=== PATIENT | male | born 1965 | race Caucasian/White ===

== ENCOUNTER 2016-08-19 12:52 | Emergency (ER) | payer MEDICAID, OTHER ==
[2016-08-19 13:04] VITALS: PULSE 90; RESP 18; TEMP 97.9; O2SAT 99
--- NOTE | 2016-08-19 13:36 | C.PDOC ---
History Of Present Illness 51 yr old male presents to the ER stating yesterday he slipped on icy stairs while at work, injuring his right shoulder and elbow. Patient states the pain continues today which prompted the ED visit. Patient denies back pain, chest pain, SOB, weakness or numbness. Time Seen by Provider: 08/19/16 13:26 Chief Complaint (Nursing): Upper Extremity Problem/Injury History Per: Patient History/Exam Limitations: no limitations Onset/Duration Of Symptoms: Days (1) Current Symptoms Are (Timing): Still Present Past Medical History Reviewed: Historical Data, Nursing Documentation, Vital Signs Vital Signs: Last Vital Signs Temp 97.9 F 08/19/16 13:04 Pulse 90 08/19/16 15:15 Resp 18 08/19/16 15:15 BP 137/86 08/19/16 15:15 Pulse Ox 99 08/19/16 15:17 - Medical History PMH: Hypothyroidism Family History: States: No Known Family Hx - Social History Hx Alcohol Use: No Hx Substance Use: No - Immunization History Hx Tetanus Toxoid Vaccination: No Hx Influenza Vaccination: No Hx Pneumococcal Vaccination: No Review Of Systems Except As Marked, All Systems Reviewed And Found Negative. Cardiovascular: Negative for: Chest Pain Musculoskeletal: Positive for: Shoulder Pain (Right Shoulder), Other (Right elbow pain ). Negative for: Back Pain Neurological: Negative for: Weakness, Numbness Physical Exam - Physical Exam Appears: Non-toxic, No Acute Distress Skin: Warm, Dry Head: Atraumatic, Normacephalic Eye(s): bilateral: Normal Inspection Oral Mucosa: Moist Neck: Normal, Normal ROM, Supple Chest: Symmetrical, No Tenderness Cardiovascular: Rhythm Regular, No Murmur Respiratory: Normal Breath Sounds, No Rales, No Rhonchi Gastrointestinal/Abdominal: Soft, No Tenderness Extremity: Tenderness (Right Shoulder - Tenderness to the posterior. Pain with abduction pass 90 degrees. Right Elbow - Tenderness to the posterior elbow. ), Capillary Refill (< 2 sec), No Swelling Pulses: Left Radial: Normal, Right Radial: Normal Neurological/Psych: Oriented x3, Normal Speech, Normal Motor Gait: Steady ED Course And Treatment O2 Sat by Pulse Oximetry: 99 - Other Rad X-Ray - Right Shoulder X-Ray: Viewed By Me, Read By Radiologist Interpretation: PROCEDURE: Radiographs of the Right Shoulder. HISTORY: shoulder injury r/o fx. COMPARISON: None available. FINDINGS: BONES: No acute displaced fracture. The distal clavicle and underlying ribs appear intact. JOINTS: No acute dislocation. SOFT TISSUES: Soft tissues appear unremarkable. No evidence of radiopaque foreign body. IMPRESSION: No acute displaced fracture or dislocation evident. If symptoms persist or if there is continued clinical concern, x-ray follow-up in 7-10 days should be considered. X-Ray - Right Elbow X-Ray: Viewed By Me, Read By Radiologist Interpretation: PROCEDURE: Radiographs of the right elbow. HISTORY: elbow injury r/o fx. COMPARISON: None available. FINDINGS: BONES: No acute displaced fracture. JOINTS: No dislocation. SOFT TISSUES: Mild soft tissue swelling. No evidence of radiopaque foreign body. JOINT EFFUSION: No significant joint effusion. OTHER FINDINGS: None. IMPRESSION: Mild soft tissue swelling. No acute displaced fracture, dislocation, or significant joint effusion identified. If high clinical index of suspicion for occult fracture consider cross-sectional imaging. Otherwise if symptoms persist, or if there is continued clinical concern, x-ray follow-up in 7-10 days should be considered. Orthopedic Procedure: Splint Type: Long, Posterior Other:: right arm Consent obtained: Verbal Performed by: Mid-level Provider (Jami) Diagnosis: Other (pain) Medical Decision Making Medical Decision Making: PLAN: * X-Ray - Right Elbow, Right Shoulder * Naproxen PO Splint was applied because of pain, but no fractures seen. Patient was instructed to follow up with Ortho. Disposition - Disposition Referrals: [facility] at [facility] [Outside] Disposition: HOME/ ROUTINE Disposition Time: 15:07 Condition: GOOD Additional Instructions: Follow up with the medical doctor within 1-2 days. Return if worsened. Prescriptions: Naproxen [Naprosyn] 500 mg PO BID #20 tab Instructions: Elbow Sprain (ED) Forms: Work Excuse - Clinical Impression Clinical Impression: Elbow sprain, Shoulder contusion - PA / CLUB MANAGER / Resident Statement MD/DO has reviewed & agrees with the documentation as recorded. - Scribe Statement The provider has reviewed the documentation as recorded by the Scribe Sabrina Joseph All medical record entries made by the Scribe were at my direction and personally dictated by me. I have reviewed the chart and agree that the record accurately reflects my personal performance of the history, physical exam, medical decision making, and the department course for this patient. I have also personally directed, reviewed, and agree with the discharge instructions and disposition.
[2016-08-19] MEDS ORDERED: Naproxen 550 mg Tab PO STA (13:37)
[2016-08-19] MEDS ORDERED: Naproxen 550 mg Tab PO ONE (14:02)
--- NOTE | 2016-08-19 14:57 | RAD ---
PROCEDURE: Radiographs of the Right Shoulder HISTORY: shoulder injury r/o fx COMPARISON: None available. FINDINGS: BONES: No acute displaced fracture. The distal clavicle and underlying ribs appear intact. JOINTS: No acute dislocation. SOFT TISSUES: Soft tissues appear unremarkable. No evidence of radiopaque foreign body. IMPRESSION: No acute displaced fracture or dislocation evident. If symptoms persist or if there is continued clinical concern, x-ray follow-up in 7-10 days should be considered.
--- NOTE | 2016-08-19 15:07 | RAD ---
PROCEDURE: Radiographs of the right elbow. HISTORY: elbow injury r/o fx COMPARISON: None available FINDINGS: BONES: No acute displaced fracture. JOINTS: No dislocation. SOFT TISSUES: Mild soft tissue swelling. No evidence of radiopaque foreign body. JOINT EFFUSION: No significant joint effusion. OTHER FINDINGS: None IMPRESSION: Mild soft tissue swelling. No acute displaced fracture, dislocation, or significant joint effusion identified. If high clinical index of suspicion for occult fracture consider cross-sectional imaging. Otherwise if symptoms persist, or if there is continued clinical concern, x-ray follow-up in 7-10 days should be considered.
[2016-08-19 15:16] VITALS: BP 137/86
== END 2016-08-19 15:16 | disposition home or self-care (01) ==
LOC: C.ER 12:52
DX: S53.401A Unspecified sprain of right elbow, initial encounter (principal); S40.011A Contusion of right shoulder, initial encounter; W10.9XXA Fall (on) (from) unspecified stairs and steps, initial encounter; Y92.89 Other specified places as the place of occurrence of the external cause; Y99.0 Civilian activity done for income or pay

== ENCOUNTER 2016-08-25 16:58 | Emergency (ER) | payer OTHER ==
[2016-08-25 17:10] VITALS: TEMP 97.9; O2SAT 98
--- NOTE | 2016-08-25 17:38 | C.PDOC ---
History Of Present Illness 51 yo male return to ED for reevaluation of Right elbow and Right shoulder pain developed since 08/19/16. Pt admits, was seen here on 08/19/16 when Right shoulder /elbow xray performed with normal results and splint applied to Right arm. Pt sts, developed some numbing and tingling sensation to Right hand fingers more to 5th finger. Otherwise, pt denies worsening of pain, weakness, pallor or any other new active complaints to Right arm. AMbulate to ED for evaluation, not in any apparent distress. Long Right arm splint noted. NO ortho F/U as of today. Time Seen by Provider: 08/25/16 17:35 Chief Complaint (Nursing): Upper Extremity Problem/Injury History Per: Patient Past Medical History Reviewed: Historical Data, Nursing Documentation, Vital Signs Vital Signs: Last Vital Signs Temp 97.9 F 08/25/16 17:07 Pulse 70 08/25/16 18:44 Resp 16 08/25/16 18:44 BP 146/79 08/25/16 18:44 Pulse Ox 98 08/25/16 18:44 - Medical History PMH: Hypothyroidism Denies: Chronic Kidney Disease Family History: States: No Known Family Hx - Social History Hx Alcohol Use: No Hx Substance Use: No - Immunization History Hx Tetanus Toxoid Vaccination: No Hx Influenza Vaccination: No Hx Pneumococcal Vaccination: No Review Of Systems Except As Marked, All Systems Reviewed And Found Negative. Constitutional: Negative for: Fever, Chills Musculoskeletal: Positive for: Arm Pain Neurological: Negative for: Weakness, Numbness Physical Exam - Physical Exam Appears: Well, Non-toxic, No Acute Distress Skin: Normal Color, Warm, No Rash, No Ecchymosis Extremity: Other (Right long arm fiberglass noted. Cap refill <2sec to Right hand. No neurovascular deficits distally.) Neurological/Psych: Oriented x3, Normal Speech, Normal Motor, Normal Sensation, Normal Reflexes ED Course And Treatment O2 Sat by Pulse Oximetry: 98 Pulse Ox Interpretation: Normal - Other Rad X-Ray - Right Elbow X-Ray: Read By Radiologist Interpretation: Accession No. : [id number]. Patient Name / ID : MAYITO ESTEBAN / [id number]. Exam Date : 08/19/2016 13:34:49 ( Approved ). Study Comment : Sex / Age : M / 51Y. Creator : Lydia Edmondson MD. Dictator : Lydia Edmondson MD. Cigarette Book Maker : Hair Or Beauty Salon Manager : Lydia Edmondson MD. Approver2 : Report Date : 08/19/2016 15:06:19. My Comment : . PROCEDURE: Radiographs of the right elbow. HISTORY: elbow injury r/o fx. COMPARISON: None available. FINDINGS: BONES: No acute displaced fracture. JOINTS: No dislocation. SOFT TISSUES: Mild soft tissue swelling. No evidence of radiopaque foreign body. JOINT EFFUSION: No significant joint effusion. OTHER FINDINGS: None. IMPRESSION: Mild soft tissue swelling. No acute displaced fracture, dislocation, or significant joint effusion identified. If high clinical index of suspicion for occult fracture consider cross-sectional imaging. Otherwise if symptoms persist, or if there is continued clinical concern, x-ray follow-up in 7-10 days should be considered. X-Ray - Right Shoulder X-Ray: Read By Radiologist Interpretation: Accession No. : [id number]. Patient Name / ID : MAYITO ESTEBAN / [id number]. Exam Date : 08/19/2016 13:34:30 ( Approved ). Study Comment : Sex / Age : M / 51Y. Creator : Lydia Edmondson MD. Dictator : Lydia Edmondson MD. Cigarette Book Maker : Hair Or Beauty Salon Manager : Lydia Edmondson MD. Approver2 : Report Date : 08/19/2016 14:55:47. My Comment : . PROCEDURE: Radiographs of the Right Shoulder. HISTORY: shoulder injury r/o fx. COMPARISON: None available. FINDINGS: BONES: No acute displaced fracture. The distal clavicle and underlying ribs appear intact. JOINTS: No acute dislocation. SOFT TISSUES: Soft tissues appear unremarkable. No evidence of radiopaque foreign body. IMPRESSION: No acute displaced fracture or dislocation evident. If symptoms persist or if there is continued clinical concern, x-ray follow-up in 7-10 days should be considered. Progress Note: Long Right arm splint removed. pressure points noted over Right hand ulnar aspect. On re-eavluation of Right UE: mild tenderness over medial aspect. FAROM, no neurovascular deficits. No skin changes. xray review and appears normal without acute fx. Jose Rafael wrap to re-applied to Right elbow, SLing to Right arm. Pt advised. ref. to f/u with ortho in 2-3 days for re-eavl. return if any new hcanges. Disposition Counseled Patient/Family Regarding: Diagnosis, Need For Followup - Disposition Referrals: [facility] [Outside] [facility] [place] [Outside] Disposition: HOME/ ROUTINE Disposition Time: 18:34 Condition: STABLE Additional Instructions: Jose Rafael wrap to Right elbow Sling take medication as prescribed for pain as need Follow up with Orthopedist in 2-3 days for re-evaluation. Return to ED if any worsening or new changes. Prescriptions: Ibuprofen [Motrin] 600 mg PO Q6 #20 tab traMADol [Ultram] 50 mg PO BID #10 tab Instructions: Elbow Sprain (ED) - Clinical Impression Clinical Impression: Arthralgia of elbow, right, Shoulder arthralgia
[2016-08-25 18:44] VITALS: BP 146/79; PULSE 70; RESP 16
== END 2016-08-25 18:44 | disposition home or self-care (01) ==
LOC: C.ER 16:58
DX: M25.521 Pain in right elbow (principal); M25.511 Pain in right shoulder

== ENCOUNTER 2016-12-14 19:36 | Emergency (ER) | payer OTHER ==
[2016-12-14] MEDS ORDERED: Sodium Chloride 0.9% 1,000 ML ONE (20:05)
--- NOTE | 2016-12-14 20:07 | C.PDOC ---
History Of Present Illness 51M c/o left testicular pain and swelling worsening since last night. he does heavy lifting at work but denies acute trauma. no urinary sx. takes meloxicam/ motrin at home no relief. Time Seen by Provider: 12/14/16 20:06 Chief Complaint (Nursing): Male Genitourinary Past Medical History Vital Signs: Last Vital Signs Temp 98.8 F 12/14/16 23:56 Pulse 84 12/14/16 23:56 Resp 18 12/14/16 23:56 BP 112/62 12/14/16 23:56 Pulse Ox 99 12/14/16 23:56 - Medical History PMH: Hypothyroidism Family History: States: Other Other Family History: nc - Social History Hx Alcohol Use: No Hx Substance Use: No - Immunization History Hx Tetanus Toxoid Vaccination: No Hx Influenza Vaccination: No Hx Pneumococcal Vaccination: No Review Of Systems Except As Marked, All Systems Reviewed And Found Negative. Constitutional: Negative for: Fever, Chills Cardiovascular: Negative for: Chest Pain Respiratory: Negative for: Cough, Shortness of Breath Gastrointestinal: Positive for: Abdominal Pain (little llq). Negative for: Nausea, Vomiting Genitourinary: Negative for: Dysuria, Frequency, Hematuria, Penile Discharge Neurological: Negative for: Weakness, Numbness Physical Exam - Physical Exam Appears: Well, Non-toxic, No Acute Distress Skin: Warm, Dry Head: Atraumatic Eye(s): bilateral: PERRL Nose: No Epistaxis Oral Mucosa: Moist Lips: No Swelling Cardiovascular: Rhythm Regular Respiratory: No Decreased Breath Sounds, No Accessory Muscle Use Gastrointestinal/Abdominal: Soft, No Tenderness, No Distention, No Guarding, No Rebound Male Genital: Testicular Tenderness (left), Testicular Swelling (left) Neurological/Psych: Oriented x3, Other (no focal deficits) ED Course And Treatment - Laboratory Results Result Diagrams: 12/14/16 20:29 12/14/16 20:29 O2 Sat by Pulse Oximetry: 98 - CT Scan/US US Scrotum Other Rad Studies (CT/US): Read By Radiologist, Radiology Report Reviewed CT/US Interpretation: EXAM: US Scrotum. CLINICAL HISTORY: 51 years old, male; Pain; Scrotum pain; Additional info: Pain and swelling. TECHNIQUE: Real-time ultrasound of the scrotum with color Doppler and image documentation. COMPARISON: No relevant prior studies available. FINDINGS: Right testicle: Very small cysts in the right testicle. No torsion. Left testicle: Very small cysts in the left testicle. No torsion. Epididymides: The right epididymis is enlarged, heterogeneous and hypervascular consistent with. epididymitis. Scrotum: Small bilateral hydroceles. Scrotal wall thickening on the left. IMPRESSION: 1. The right epididymis is enlarged, heterogeneous and hypervascular consistent with epididymitis. 2. Small bilateral hydroceles. Medical Decision Making Medical Decision Makin saw pt upon being roomed and immediately ordered US I disc the US results w the pt and family. he is feeling better and is comfortable w plan for po abx at home, urology follow up, and return if worse. Disposition - Disposition Referrals: Cisco Huertas MD [Staff Provider] - Disposition: HOME/ ROUTINE Disposition Time: 23:32 Condition: IMPROVED Prescriptions: Acetaminophen with Codeine [Tylenol with Codeine #3 Tablet] 1 each PO Q4H PRN # 10 tablet PRN Reason: Pain, Moderate (4-7) Levofloxacin [Levaquin] 500 mg PO DAILY #10 tablet Naproxen [Naprosyn] 500 mg PO Q12H PRN #10 tablet PRN Reason: Pain, Moderate (4-7) Instructions: Epididymitis (ED) Forms: Gen Discharge Inst Estonian, Work Excuse Print Language: ROMANIAN - Clinical Impression Clinical Impression: Epididymitis
[2016-12-14] MEDS ORDERED: Sodium Chloride 0.9% 1,000 ML IV ONE (20:11)
[2016-12-14] MEDS ORDERED: Morphine 4 MG/ML VIAL ONE ×2 (20:30→23:02)
[2016-12-14 20:35] LABS: BASO % 0.3 % (0.0-2.0); EOS # 0.1 K/uL (0.0-0.7); EOS % 0.5 % (0.0-4.0); HEMOGLOBIN 15.5 g/dL (12.0-18.0); LYMPH # 0.9 K/uL (1.0-4.3); LYMPH % 6.7 % (20.0-40.0); MEAN CELL VOLUME 90.7 fL (80.0-94.0); MEAN CORPUSCULAR HEMOGLOBIN 30.5 pg (27.0-31.0); MEAN CORPUSCULAR HGB CONC 33.6 g/dL (33.0-37.0); MEAN PLATELET VOLUME 7.8 fL (7.2-11.7); MONO % 7.6 % (0.0-10.0); NEUT # 11.4 K/uL (1.8-7.0); NEUT % 84.9 % (50.0-75.0); NRBC % 0.1 % (0.0-2.0); PLATELET COUNT 262 K/uL (130-400); RBC 5.07 Mil/uL (4.40-5.90); RED CELL DISTRIBUTION WIDTH 13.1 % (11.5-14.5); WHITE BLOOD COUNT 13.5 K/uL (4.8-10.8)
[2016-12-14 21:02] LABS: URINE BACTERIA FEW (<OCC); URINE BILIRUBIN NEGATIVE (NEGATIVE); URINE BLOOD NEGATIVE (NEGATIVE); URINE CLARITY Hazy (Clear); URINE COLOR Yellow (YELLOW); URINE GLUCOSE (UA) NORMAL (Normal); URINE LEUKOCYTE ESTERASE 2+ Leu/uL (Negative); URINE NITRATE NEGATIVE (NEGATIVE); URINE PROTEIN NEGATIVE (NEGATIVE); URINE UROBILINOGEN NORMAL mg/dL (0.2-1.0)
[2016-12-14 21:08] LABS: ALBUMIN 4.5 g/dL (3.5-5.0)
[2016-12-14 21:10] LABS: GFR AFRICAN-AMERICAN > 60; GFR NON-AFRICAN AMERICAN > 60
[2016-12-14 21:11] LABS: ALB/GLOB RATIO 1.2 (1.0-2.1); ALT/SGPT 37 U/L (21-72); AST/SGOT 24 U/L (17-59); BLOOD UREA NITROGEN 12 mg/dL (9-20); CALCIUM 9.3 mg/dl (8.6-10.4)
[2016-12-14 21:17] LABS: BANDS 4 % (0-2); LARGE PLATELETS PRESENT; LYMPHOCYTE 4 % (20-40); MICROCYTOSIS SLIGHT; MONOCYTE 10 % (0-10); NEUTROPHIL 82 % (50-75); PLATELET ESTIMATE NORMAL (NORMAL); TOTAL CELLS COUNTED 100
[2016-12-14] MEDS ORDERED: cefTRIAXone IV 1 gm in Dextros 50 ML IVPB ONE (21:37)
[2016-12-14 21:42] VITALS: PULSE 84; RESP 18
[2016-12-14 23:56] VITALS: BP 112/62; TEMP 98.8
--- NOTE | 2016-12-15 10:11 | US ---
HISTORY: pain and swelling TECHNIQUE: Realtime sonography through the scrotum with color and doppler flow. COMPARISON: None Available. FINDINGS: RIGHT TESTICLE: Measures 4.8 x 2.1 x 2.4 cm. Normal echotexture and flow. No evidence of solid mass. There is a 3 mm simple cyst in the upper body and 2 simple cysts in the lower pole measuring 3 mm and 4 mm. RIGHT EPIDIDYMIS: Epididymal head measures 0.9 x 1.3 x 1.4 cm. Grossly unremarkable appearance with normal flow. LEFT TESTICLE: Measures 3.7 x 2.4 x 2.7 cm. Normal echotexture and flow. There is a 4 mm simple cyst in the upper body. LEFT EPIDIDYMIS: Epididymal head enlarged and measures 2.2 x 1.2 x 2.4 cm. There is heterogeneous echotexture with increased flow. HYDROCELE: There are bilateral small hydroceles. VARICOCELE: There is a right varicocele. OTHER FINDINGS: There is mild left scrotal wall thickening. IMPRESSION: 1. Left epididymo -orchitis. 2. No testicular mass or torsion. 3. Bilateral small hydroceles. Right varicocele. A preliminary report was provided by [employer].
[2016-12-16 18:19] VITALS: O2SAT 98
== END 2016-12-14 23:58 | disposition home or self-care (01) ==
LOC: C.ER 19:36
DX: N45.3 Epididymo-orchitis (principal)
CPT/HCPCS: 76870; 80053; 81001; 85025; 87086; 87491; 87591; 96365; 96375; 99285; J0696; J1885; J2270; J7040

== ENCOUNTER 2017-02-11 11:04 | Day surgery (SDC) | payer OTHER ==
[2017-02-03 09:06] VITALS: BMI 28.1
[2017-02-11] MEDS: ceFAZolin IV 2 gm in Dextrose 1 GM/50 ML BAG IVPB ONE ×2 (10:29→13:30)
[~2017-02-11 11:04] MED LIST: Lactated Ringer's 1,000 ML IV ONE
[2017-02-11] MEDS ORDERED: Midazolam 2 MG/2 ML VIAL ONE (12:29)
[2017-02-11] MEDS ORDERED: Propofol 10 mg/ml Inj (20 ML) ONE (12:29)
[2017-02-11] MEDS ORDERED: Lidocaine Hydrochloride 5 ML INJ ONE (12:33)
[2017-02-11] MEDS ORDERED: Rocuronium 10 mg/ml (10 ml) ONE (12:33)
[2017-02-11] MEDS ORDERED: Succinylcholine Chloride 20 mg/ml Syr (5 ml) IV ONE (12:33)
[2017-02-11] MEDS ORDERED: Lidocaine 2% w Epi 1:100,000 Inj IJ ONE (13:43)
[2017-02-11] MEDS ORDERED: Lactated Ringer's 1,000 ML IV ONE (14:25)
[2017-02-11] MEDS ORDERED: Morphine 4 MG/ML VIAL ONE (15:24)
[2017-02-11] MEDS ORDERED: Neostigmine Methylsulfate 3mg/3ml Syringe IV ONE (16:11)
[2017-02-11] MEDS ORDERED: HYDROmorphone 0.5 mg/0.5 ml ISec IVP PRN (16:21)
[2017-02-11] MEDS ORDERED: Bupivacaine HCl 0.25% PF (10 ml) Inj ONE (16:29)
[2017-02-11] MEDS ORDERED: HYDROmorphone 1 mg/ml ISec ONE (16:30)
--- NOTE | 2017-02-11 16:59 | PCM.ANESB1 ---
Interscalene Block - Brachial Plexus Date of Procedure: 02/11/17 Anesthesiologist: shabbir Procedure Performed: Interscalene Block of Brachial Plexus Right - Procedure Interscalene Block of Brachial Plexus: This procedure was explained to the patient that it is for post-operative pain management. Consent was obtained after a thorough discussion with the patient regarding the benefits and possible complications of local anesthetic block of the Brachial Plexus at the Interscalene area. The patient was brought to the Operating Room and standard monitors were applied. Time out was held with the circulating nurse to confirm the correct surgery and appropriate block. After applying Oxygen by nasal cannula and administering IV Sedation, the patient's head was gently rotated away from the _right operative shoulder and the anterior scalene groove was carefully palpated. The ultrasound transducer was then applied to the skin in the transverse plane and the brachial plexus was visualized lateral to the carotid artery and in between the anterior and middle scalene muscles. After identification,the anterior lateral portion of the neck was prepped with Betadine solution three times and Lidocaine 1% was injected subcutaneously for topical analgesia. At this point, a # 22 gauge Stimuplex 2 inches insulated needle was inserted into the interscalene groove and directed in a caudal and midline direction. The needle was inserted lateral to the ultrasound transducer in-plane towards the brachial plexus in a [id number] direction. Needle advancement was performed carefully under direct ultrasound visualization. . After repeated negative aspiration,__5___cc of_.25____, bupivicaine were injected and this was followed with ___25__cc of .25 % ____bupivaine ____. Under ultrasound guidance the local anesthetics were observed surrounding the roots of the brachial plexus. The needle was removed intact and sterile dressing was applied. The patient had stable vital signs, was conscious and in no apparent distress. The patient tolerated the interscalene block of the bracheal plexus well with stable vital signs and was prepared for subsequent surgery.
[2017-02-11 18:10] VITALS: BP 139/88; PULSE 69; RESP 18; TEMP 97.8; O2SAT 100
--- NOTE | 2017-02-11 18:31 | PCM.SURG1 ---
Surgeon's Initial Post Op Note - Surgeon's Notes Surgeon: Ev Wray MD Medical Economics Consultant: Lynne Scott MD Type of Anesthesia: General Endo, Block Regional Pre-Operative Diagnosis: Right shoulder #1 Rotator Cuff Tear. #2 SA bursitis & impingement. #3 degenerative labral tear. #4 Biceps LH tendon partial tear & instability Operative Findings: Right shoulder #1 Rotator Cuff Tear. #2 SA bursitis & impingement. #3 degenerative labral tear. #4 Biceps LH tendon partial tear & instability Post-Operative Diagnosis: Right shoulder #1 Rotator Cuff Tear. #2 SA bursitis & impingement. #3 degenerative labral tear. #4 Biceps LH tendon partial tear & instability Operation Performed: Right shoulder. #1 Arthroscopic Rotator Cuff Repair. #2 Arthroscopic extensive debridement & synovectomy. #3 Arthroscopic subacromial decompression w/ acromioplasty. #4 Open Biceps LH tenodesis Specimen/Specimens Removed: specimen= none. complications= none. Implants= [employer] : biocomposite swivel lock anchors (2x 4.75mm & 2x 5.5mm (medial row)) and pectoralis/tenodesis button Estimated Blood Loss: EBL {In ML}: 3 Blood Products Given: N/A Drains Used: No Drains Post-Op Condition: Good Date of Surgery/Procedure: 02/11/17 Time of Surgery/Procedure: 18:35
--- NOTE | 2017-02-12 12:21 | OP ---
PROCEDURE DATE: 02/11/2017 PREOPERATIVE DIAGNOSES: 1. Right shoulder rotator cuff tear. 2. Subacromial bursitis. 3. Subacromial impingement. 4. Degenerative labral tear. 5. Biceps tendon long head partial tear and instability/tendinopathy. POSTOPERATIVE DIAGNOSES: 1. Right shoulder rotator cuff tear. 2. Subacromial bursitis. 3. Subacromial impingement. 4. Degenerative labral tear. 5. Biceps tendon long head partial tear and instability/tendinopathy. 6. Synovitis. 7. Grade 3 chondral injury glenoid (3mm lesion at inferior aspect). PROCEDURES: 1. Right shoulder arthroscopic rotator cuff repair. 2. Arthroscopic extensive debridement and synovectomy (chondroplasty glenoid/ biceps tenotomy/synovectomy/labral debridement). 3. Arthroscopic subacromial decompression with acromioplasty. 4. Open biceps long head subpectoral tenodesis. SURGEON: Ev Wray MD BRAKE REPAIR MECHANIC: Lynne Scott MD JUSTIFICATION FOR BRAKE REPAIR MECHANIC: Dr. Lynne Scott is a board certified orthopedic surgeon. He was speciality trained sport medicine and his presence was an absolute necessity as a skilled surgical assistance supervise, skill surgical assistance with positioning the patient, positioning of extremity, management of the surgical harper, passage of suture, and placement of suture anchors for double row rotator cuff repair, management of orthoscopic equipment including subacromial decompression, extensive debridement, placement of suture anchors, retraction of neurovascular structures and preparation of proximal long head biceps tendon and preparation of docking site for biceps tenodesis and completion of biceps tenodesis, wound closure. Dr. Lynne Scott was present for the entire case and was an absolute necessity for successful completion of the procedure. TYPE OF ANESTHESIA: General endotracheal anesthesia with a postoperative regional nerve block placed by anesthesia staff in the PACU. SPECIMENS: None. COMPLICATIONS: None. IMPLANTS: [employer] biocomposite SwiveLock anchors (two 5.5 mm medial row anchors and two 4.75 mm lateral row anchors, proximal tenodesis button/pectoralis tenodesis button.) ESTIMATED BLOOD LOSS: 3 mL. DRAINS: None. DISPOSITION: The patient was extubated in satisfactory and stable condition in his shoulder immobilizer and tolerated the procedure well. INDICATIONS FOR PROCEDURE: 51-year-old male, who is right-hand dominant with a past medical history significant for hypothyroidism, who presented to the office under my care for the first time on 08/30/2016 as a referral from [facility] ER with right shoulder and right elbow pain as a workman's comp case after injury at work on 08/18/2016. 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 The date of injury was 08/18/2016. The patient stated that on 08/18/2016, he slipped down the steps and fell at work landing on his right elbow and right shoulder resulting an immediate 9/10 right shoulder pain and 5/10 right elbow pain. He has loss of function of his right shoulder with inability to reach overhead with pain at night. He has pain localized to the lateral aspect of his elbow. He went to [facility] the next day and after evaluation by ER staff. and review of the imaging, he was diagnosed with a potential occult fracture of the right elbow and he was placed on a posterior long arm splint and referred for followup of orthopedic surgeon as an outpatient. When he presented in the office, the splint was removed and he was examined and on physical examination, it was felt that indeed his right shoulder did sustain a rotator cuff tear or at least a bad sprain as well as biceps tendinitis or partial tear with instability. It was also felt that he had a right elbow lateral epicondylitis and possible stress fracture of the olecranon. He was referred for MRI of the right elbow, which was done at [facility] on 09/06/2016 and was read as: 1. Prominent sprain and partial tearing seen at the proximal attachment of the common extensor tendon suggestive for severe lateral epicondylitis and there may be a small full thickness component to the tear. 2. Adjacent prominent partial tearing of the proximal attachment of the lateral ulnar collateral ligament with a small full thickness component. 3. Fraying, with increased signal proximal attachment of the radial collateral ligament suggestive for moderate to high-grade sprain or partial tear. 4. Focal cartilage fibrillation and loss overlying the capitellum with signal change in the adjacent marrow suggestive for developing osteochondral change. 5. Small elbow joint effusion. 6. Moderate insertional tendinopathy of the biceps tendon on the radial tuberosity. 7. Mild increased signal within the proximal attachment of the ulnar collateral ligament suggestive for low-grade sprain. RIGHT ELBOW TREATMENT SUMMARY: Right elbow was placed in a hinged elbow brace to allow for the ligament to heal and maintain his stability as well as the bone contusions. We obtained authorization for a lateral epicondylitis injection, which was carried out in the office on 10/07/2016 with near complete resolution of the lateral aspect of his pain. After treatment in the hinged elbow brace for about two months in total, the patient's pain completely resolved and he was able to maintain full range of motion and 5/5 motor strength with no instability on clinical exam to the right elbow and he was very satisfied with his outcome with the right elbow returning to baseline function by his office visit on 12/27/2016. RIGHT SHOULDER TREATMENT: The patient underwent multiple cortisone mixture injections to the right shoulder after worker's comp authorization. Three injections were carried out in total, each injection round was subacromial cortisone mixture injection as well as a cortisone mixture injection localized to the biceps groove/long head biceps tendon as he has significant anterior shoulder pain. He underwent cortisone mixture injection to both areas of the right shoulder on 09/24/2016, 10/07/2016, and 12/27/2016 with complete resolution of his shoulder pain, both anteriorly and posteriorly with jew of full range of motion without pain, but he did not regain his strength even with the local anesthetic working during all of the injection visits. The patient reported the injections would last about a month in total and the pain was returned as well as dysfunction. When the injections wore off, the patient was unable to raise his arm overhead or have any significant right shoulder strength. He was dropping objects. He had pain localized to the right shoulder that would awake him at night. He underwent an MR arthrogram of the right shoulder that was carried out at [facility] on 09/06/2016 as well, which was read as: 1. A 7 mm horizontally oriented focal area of fluid signal intensity at the far anterior insertion of the distal supraspinatus tendon and greater tuberosity suggestive for focal full thickness remnant tear. More proximally, there is prominent partial articular surface tearing with associated severe tendinopathy with no significant muscle atrophy. 2. Prominent partial articular surface tearing of the distal infraspinatus tendon with suggestion of possible full thickness interstitial component with no gross tendon retraction and muscle atrophy. 3. [id number] distal subscapularis tendinopathy. 4. Evaluation of labrum demonstrate increased signal at the level of the superior and posterior labral suggestive for degenerative tear. 5. A 1.3-cm focal area of lobulated fluid signal intensity demonstrating decreased T1 signal and increased STIR signal within the lateral proximal humerus near the base of the greater trochanter. This may represent a synovial cyst or an intraosseous ganglion. 6. Moderate acromioclavicular joint degenerative changes with joint space narrowing, subchondral edema and bony hypertrophy. 7. Heterogeneity of the visualized marrow and patchy decreased T1 signal suggestive for hematopoietic marrow re-conversion. I spent a longtime after the three round of injections and after the MR arthrogram explaining the patient's diagnosis and that he was indicated for arthroscopic rotator cuff repair. There was the full thickness component to his tear, but he had significant partial tearing of the both supraspinatus and infraspinatus and I advised him that if we were to undergo surgery, we should repair the partial tear as well if the comprised greater than 50% thickness of the tendon. After his third round of injection with return of his pain and dysfunction, the patient was finally indicated for right shoulder arthroscopic surgery. He is indicated for right shoulder: arthroscopic rotator cuff repair with extensive debridement and subacromial decompression with possible acromioplasty and open biceps tenodesis of the long head tendon in the subpectoralis area and all related indicated procedures. The risks, benefits, and alternatives to the procedure was discussed with length the patient with the risk including not limited to infection, neurovascular damage, need for further surgery, failure of repair, failure of tenodesis, failure of implant, developed a blood clot including DVT and PE, development of chronic pain and disability, stiffness, inability to return to preinjury level activity and return to work, anesthesia reaction including , perioperative cardiopulmonary compromise. After answering all of his questions, the patient accepted the risks and wished to proceed with surgery. He wants surgical animation videos and diagnoses animation videos and stated that he understood his diagnosis as well as multiple parts of procedures to be done. I reviewed at length with him the postop rehab protocol and the need for compliance with the shoulder immobilizer sling and nonweightbearing to the right upper extremity after surgery in order to maximize the chances of having successful outcome after the surgery. I gave him a copy of our postop rehab protocol for rotator cuff repair and biceps tenodesis as well for him to review and understand. The biceps tenodesis was indicated as every anterior bicipital groove injection done in the office resulted incomplete resolution of his pain and the biceps tendon was found to be unstable with a palpable click with abduction and external rotation as well as a significant amount of pain localized to the anterior aspect of the shoulder. I understand that the MR arthrogram radiologist read did not revealed that there was significant tearing to the biceps tendon, but clinically he had significant tenosynovitis and instability of the biceps tendon and there was the possibility of a missed partial tear. He was referred to Dr. Adler, PCP, for preoperative medical clearance and the patient was scheduled for surgery after worker's comp authorization was obtained. PROCEDURE IN DETAIL: The patient was identified in the preoperative holding area and the right shoulder was marked for surgery. Once again as described above; the risks, benefits, and alternatives of the procedure were discussed at length with the patient and informed consent was obtained. After brief discussion with anesthesia staff, perioperative IV antibiotics in the form of 2 g of Ancef were administered and the patient was taken to the operating room and placed on well-padded operating table for all bony prominence , superficial neurovascular structures well-padded. An initial time-out was done with the surgeon, anesthesia staff, and OR staff and all are in agreement with the patient, procedure to be done, and extremity to be operated on. General anesthesia was administered without difficulty or complication with the plan of placing a regional nerve block or postoperative pain control and the PACU after the patient tolerated the surgery. Once the general anesthesia was placed and the patient was intubated with careful hemodynamic monitoring, the patient was brought from the supine position to the upright position. With assistance from anesthesia staff the beach chair positioner was brought into the upright position while checking his blood pressure / vitals midway to confirm that he can tolerate and maintain his own hemodynamic stability in the upright position. Examination under anesthesia was then carried out. EXAMINATION UNDER ANESTHESIA: Right shoulder with full range of motion obtained with no evidence of instability and no crepitance. With the shoulder beyond 90 degrees of abduction and external rotation, there was a reproducible palpable click representing biceps instability as the biceps tendon can be felt dislocating out of the groove or at least subluxing. CONTINUATION OF PROCEDURE: With the help of anesthesia staff and OR staff, the beach chair position in the upright position was confirmed with good positioning of the patient and neutral head and neck alignment and body positioning in a safe position. Once the beach chair position was confirmed to be in a good position that was safe for the patient, We proceeded with prepped and draped in standard sterile fashion of the right shoulder with the help of a spider extremity velazquez. A final time-out was done with the surgeon, anesthesia staff, and OR staff, and all are in agreement with the patient, procedure to be done and extremity to be operated on. The posterior portal was created with a stab incision to the skin down to the subcutaneous tissue down to the level of the capsule and a blunt arthroscopic trocar and cannula were inserted through the posterior portal into the glenohumeral space. Arthroscopic camera was inserted and insufflation of arthroscopic fluid was begun. With the help of spinal needle localization, the anterior portal was created at the rotator interval with stab incision to the skin down to subcutaneous tissue down to the level of capsule. An accessory cannula was inserted and the shoulder joint was copiously irrigated for better visualization and removal debris. Diagnostic arthroscopy was then carried out. Attention was first turned towards the glenohumeral joint proper at the glenohumeral articulation where there was a chondral injury of the glenoid at the inferior aspect as well as degenerative labral tearing throughout most of the labrum circumferentially around the glenoid. There was a grade 3 chondral injury with a flap component measuring approximately 3 mm with no full thickness cartilage defect seen or a subchondral bone exposed at the inferior/posterior 7 O'clock position on the glenoid surface. Humeral head appeared to be intact without significant injury or chondral loss. Attention was then turned towards to the biceps tendon, which appeared to have significant partial tearing greater than 50% thickness along its entire intraarticular course with some evidence of instability as it appeared to be anterior with motion of the shoulder not correlating with humeral head motion. Once again the biceps tendon long head appeared to have significant partial tearing and tendinopathy as well as instability. The labrum as stated before circumferentially had degenerative global tearing with no visible area of morgan detachment. The subscapularis tendon was evaluated and found to be without significant injury. The rotator cuff was then evaluated and indeed there was a full thickness supraspinatus tear at its most anterior aspect confirmed with what was seen on MRI. The supraspinatus has significant partial tearing throughout most of the rest of its course and insertion, which upon close inspection with the arthroscopic probe and rotational evaluation of the shoulder joint under direct visualization as we moved the shoulder from external rotation and internal rotation truly did appear that the partial tearing of the supraspinatus was greater than 50%-75% of the thickness of the supraspinatus. The infraspinatus insertion did not appear to have a significant tear/ injury with some articular sided partial tearing seen. The axillary pouch was without any loose bodies throughout the entire anterior aspect of the shoulder joint and undersurface of the rotator cuff as well as the axillary pouch to a significant hypertrophic synovial lining and synovitis. With the use of arthroscopic shaver and radiofrequency ablation an extensive debridement was carried out including a biceps tenotomy with complete release of the biceps tendon for future biceps tenodesis as that decision was made already. The degenerative labral tear was smoothed out with arthroscopic shaver and radiofrequency ablation resulting in a nice, smooth, contour and rim to the labrum. The area of chondral injury at the inferior aspect of the glenoid underwent a chondroplasty as part of the extensive debridement with no full thickness cartilage defect seen. Once again, this was a flap of cartilage that appeared to be injured and unstable as a grade-3 injury. A synovectomy was carried out removing all the hypertrophic and inflamed synovium from the anterior aspect and undersurface of the rotator cuff while maintaining good hemostasis. After all intraarticular treatments was completed to satisfaction and the rotator cuff tear was prepared from an intraarticular standpoint and attention was then turned toward subacromial placement of the camera and treatment. The arthroscopic camera was then placed in the subacromial space and with the use of arthroscopic shaver and radiofrequency ablation a subacromial decompression and bursectomy was carried out as there was significant bursitis tissue. The undersurface of the acromion was evaluated and was found to have a small area of impingement on the subacromial surface of the rotator cuff and with the use of arthroscopic anette an acromioplasty was carried out maintaining good hemostasis and a smooth surface. Two accessory portals were created, lateral anterior, and lateral posterior with the stab incision to the skin down to the subcutaneous tissue and placement of two cannulas for future rotator cuff repair. The arthroscopic camera was then inserted through the accessory portals and the subacromial decompression acromioplasty was completed to satisfaction and maintaining good hemostasis. The rotator cuff tear was then better visualized then the anterior full thickness portion was identified as well as the partial tearing of the rest of the supraspinatus insertion, which was released with the use of arthroscopic radiofrequency ablation at it is most lateral insertion point and the remaining 20% intact fibers of this high-grade partial tear were released to be incorporated into the rotator cuff repair. With the use of arthroscopic anette, the insertion point at the footprints of the rotator cuff was anette down and good bleeding bone was exposed. Decision was made to proceed with a double row arthroscopic rotator cuff repair of the supraspinatus tear consisting of the anterior half of the supraspinatus. An anterior medial 5.5 mm biocomposite SwiveLock anchors from [employer] was successfully placed at the anterior aspect of the footprint of the supraspinatus after the optimal placement of point was prepared with the tap. The fiber tape suture was then passed through the anterior aspect of the supraspinatus tear of both limbs individually. These steps were repeated for placement of the posterior medial anchor (also 5.5 mm biocomposite SwilelLock anchor loaded with Fibertape and placement of fiber tape through the posterior aspect of the supraspinatus tear. After placement of two medial row anchors, the posterior limb from the posterior medial anchor and the posterior limb from the anterior medial anchor were brought through the working portal and a 4.75 biocomposite SwiveLock anchor from [employer] was placed at the posterior lateral row with good tension achieved. These steps were then repeated with the use of a tap preparation of the lateral row anchor anteriorly with placement of the anterior suture from the medial anchors in the lateral anterior anchor and a successful double row repair construct was created that was found to be stable and to satisfaction with a good rotator cuff repair carried out. Care was taken to ensure that the tension on fibertape suture placed in the lateral row was adequate and provided a stable double row rotator cuff repair. Good hemostasis was achieved and subacromial decompression was completed to satisfaction and final images of the repair were taken. Dynamic imaging of the shoulder was taken through full range of motion confirming that the repair was intact and stable. The arthroscopic camera was then inserted into the intraarticular space again, within the glenohumeral joint we can see that the synovial tissue from the rotator cuff repair was dragged over more laterally confirming an intact repair and roof created that was stable. Arthroscopic shaver and radiofrequency ablation were used to complete the synovectomy and debridement intraarticularly. All arthroscopic fluids and debris were removed and final images were taken from the intraarticular position. Attention was then turned towards the biceps tenodesis portion of the case, which was the open portion of the case. The pectoralis tendon was identified at its course crossing the anterior aspect of the shoulder joint and palpated and a 3 cm incision was made in the axillary crease just below the pectoralis tendon insertion. Incision was made through the skin down to the subcutaneous tissue while maintaining good hemostasis down to the level of deltopectoral fascia. A sharp incision was made through deltopectoral fascia with care taken not to endanger the cephalic vein. Blunt dissection was carried out down to the level of the bicipital groove and the biceps tendons was found and brought into the surgical field. The biceps tendon was found to have significant tenosynovitis tissue above it and surrounding it, which was carefully debrided while maintaining good hemostasis. The musculotendinous junction of the long head biceps tendon was identified to maintain good tension. A fiber loop suture was then used to place whipstitch fashion through the proximal aspect of the long head biceps tendon starting at the musculotendinous junction. Once 2 cm-3 cm of the proximal tendon whipstitch, the remaining tendinopathic poor quality tissue was removed. With the use of the K-wire guide, the biceps tenodesis point at the subpectoralis position was identified and cleared from overlying soft tissue while maintaining good hemostasis. The K-wire was then advanced bicortically to the near cortex and far cortex. The tendon was sized and found to be 6 mm in diameter and a 6 mm cannulated drill was then passed over the near cortex creating a socket for the biceps tendon for the biceps tenodesis. The K-wire and drill were then removed and the wound was copiously irrigated removing bony fragments from the drilling. The proximal biceps tenodesis button/tension - slide button was then prepared with both limbs and the suture crossing in opposite directions at the button and the button was then delivered through the near cortex and then into the far cortex and the button was slipped directly onto the far cortex bone and suture was then advanced and tightened and we visibly watched the biceps tendon fall into the socket and the biceps tenodesis was completed after the both end of the suture were passed through the biceps tendon after it was fully advanced into the biceps tenodesis socket and a secondary suture knot was then placed to provide secondary stabilization for the biceps tenodesis. Extra suture was cut and the construct was tested and found to be stable and successful biceps tenodesis was carried out. Good hemostasis was achieved and the wound was copiously irrigated. Wound closure was then carried out with #1 Vicryl suture for deep tissue followed by 2-0 Vicryl suture for subcutaneous tissue, followed by 3-0 Monocryl suture for skin. All arthroscopic portals were reapproximated with 2-0 Vicryl suture for deep tissue followed by 3-0 Monocryl suture for skin. Sterile dressings were applied. The right upper extremity was then placed in a Arc shoulder immobilizer sling from [facility] provided by my office for the patient. Once the immobilizer sling was in good position, the patient was carefully transported back to a stretcher where he was extubated from general anesthesia successfully and tolerated the procedure well. The patient was then transported to PACU in stable condition and tolerated the procedure well with the shoulder immobilizer in place. DISPOSITION: The patient will be discharged home when he is recovered from anesthesia. He will undergo regional nerve block by anesthesia staff in PACU. He has been given a prescription for Percocet for pain control. He is instructed to keep the dressings clean, dry, and intact and keep the shoulder in the shoulder immobilizer sling at all time until he follows up in the office next week at [facility] and already has his appointment setup. He is instructed to be strict non-weight bearing to the Right upper extremity. He will contact me directly if there are any questions or concerns. Ev Wray MD TOLU
== END 2017-02-11 18:18 | disposition home or self-care (01) ==
LOC: C.SDS 11:04
PROVIDERS: ATTEND Student in an Organized Health Care Education/Training Program
DX: M75.101 Unspecified rotator cuff tear or rupture of right shoulder, not specified as traumatic (principal); M75.51 Bursitis of right shoulder; M75.41 Impingement syndrome of right shoulder; M75.21 Bicipital tendinitis, right shoulder; M65.811 Other synovitis and tenosynovitis, right shoulder
CPT/HCPCS: 29820; 29826; 29827; C1713; C1776; J0171; J0690; J1100; J1170; J2250; J2270; J2405; J2704; J2710; J3010; J7120

== ENCOUNTER 2017-02-25 12:00 | Inpatient (IN) | payer OTHER ==
[2017-02-25 12:00] VITALS: BMI 28.1
--- NOTE | 2017-02-25 13:16 | C.PDOC ---
History Of Present Illness 51 year old male presents to the ED with complaints of subjective fever, chills , and right shoulder pain. Patient recently had surgery for a right rotator cuff injury on 02/11/[address] Morley and has been taking percocet for pain in the right shoulder. He denies nausea, vomiting, or change in sensation. Time Seen by Provider: 02/25/17 12:29 Chief Complaint (Nursing): Fever History Per: Patient History/Exam Limitations: no limitations Onset/Duration Of Symptoms: Days Current Symptoms Are (Timing): Still Present Location Of Pain: None Sick Contacts (Context): None Associated Symptoms: Fever, Chills. denies: Sore Throat, Cough, Nausea, Vomiting, Diarrhea Recent travel outside of the [place]: No Additional History Per: Prior Records Past Medical History Reviewed: Historical Data, Nursing Documentation, Vital Signs Vital Signs: Last Vital Signs Temp 97.8 F 02/25/17 16:25 Pulse 82 02/25/17 16:25 Resp 18 02/25/17 16:25 BP 145/82 02/25/17 16:25 Pulse Ox 97 02/25/17 16:25 - Medical History PMH: Hypothyroidism (NO MEDS AT PRESENT DR GARCES [facility] [place]) Family History: States: Unknown Family Hx - Social History Hx Alcohol Use: No Hx Substance Use: No - Immunization History Hx Tetanus Toxoid Vaccination: No Hx Influenza Vaccination: No Hx Pneumococcal Vaccination: No Review Of Systems Constitutional: Positive for: Fever, Chills Cardiovascular: Negative for: Chest Pain Respiratory: Negative for: Shortness of Breath Gastrointestinal: Negative for: Nausea, Vomiting Musculoskeletal: Positive for: Shoulder Pain (right shoulder pain ) Neurological: Negative for: Weakness, Numbness Physical Exam - Physical Exam Appears: Non-toxic, No Acute Distress Skin: Warm, Dry Head: Atraumatic, Normacephalic Eye(s): bilateral: Normal Inspection, PERRL, EOMI Ear(s): Bilateral: Normal Nose: Normal, No Discharge Oral Mucosa: Moist Throat: Normal, No Erythema, No Exudate Neck: Normal ROM, Supple Chest: Symmetrical, No Deformity Cardiovascular: Rhythm Regular, No Murmur Respiratory: Normal Breath Sounds, No Rales, No Rhonchi, No Wheezing Gastrointestinal/Abdominal: Soft, No Tenderness, No Distention, No Guarding, No Rebound Extremity: Capillary Refill (good capillary refill, less than two seconds ), No Swelling, Other (Right shoulder immobilizer in place. Four small incisions to anterior, lateral, and posterior shoulder. 1 incision to axilla. No erythema or drainage to incisions. ) Neurological/Psych: Oriented x3 ED Course And Treatment - Laboratory Results Result Diagrams: 02/25/17 13:32 02/25/17 13:32 ECG: Interpreted By Me, Viewed By Me ECG Rhythm: Sinus Rhythm ECG Interpretation: No Acute Changes Rate From EC O2 Sat by Pulse Oximetry: 97 (room air ) - Radiology CXR: Interpreted by Me, Viewed By Me CXR Interpretation: Yes: Other (Pneumonia ) - Other Rad Right Shoulder X-Ray X-Ray: Viewed By Me, Read By Radiologist Interpretation: FINDINGS: BONES: Postoperative changes proximal right humerus. No adjacent or suspicious abnormalities. JOINTS: Normal. Glenohumeral and acromioclavicular joints preserved. No osteoarthritis. SOFT TISSUES: Normal. OTHER FINDINGS: None. IMPRESSION: Postoperative findings proximal right humerus, otherwise unremarkable study. Progress Note: Labs were ordered and patient was given Zosyn, Tylenol, and Vanomycin IVPB. - Physician Consult Information Time Consulting Physician Contacted: 14:39 Physician Contacted: Ev Morley Outcome Of Conversation: Patient will be admitted to Dr. Medina with Dr. Robin consult for ID. Disposition - Disposition Disposition: HOSPITALIZED Disposition Time: 14:56 Condition: FAIR - Clinical Impression Clinical Impression: Fever, Postoperative pneumonia - PA / INSEAM LEVELER / Resident Statement MD/DO has reviewed & agrees with the documentation as recorded. - Scribe Statement The provider has reviewed the documentation as recorded by the Scribe Julia Pineda All medical record entries made by the Scribe were at my direction and personally dictated by me. I have reviewed the chart and agree that the record accurately reflects my personal performance of the history, physical exam, medical decision making, and the department course for this patient. I have also personally directed, reviewed, and agree with the discharge instructions and disposition. Decision To Admit - Pt Status Changed To: Hospital Disposition Of: Inpatient - Admit Certification Admit to Inpatient:: After my assessment, the patient will require hospitalization for at least two midnights. This is because of the severity of symptoms shown, intensity of services needed, and/or the medical risk in this patient being treated as an outpatient. - InPatient: Physician Admission Certification:: pt will need more then 2 days of IV antibiotics. - . Bed Request Type: Regular Admitting Physician: Kevon Medina Patient Diagnosis: Fever, Postoperative pneumonia
[2017-02-25] MEDS ORDERED: Vancomycin 1 gm/NS 200 ml 1 GM/200 ML BAG IVPB STA (13:29)
[2017-02-25] MEDS ORDERED: Piperacill/Tazo 3.375gm in Dex 3.375 GM/50 ML BAG IV ONE (13:29)
--- NOTE | 2017-02-25 13:30 | RAD ---
PROCEDURE: Radiographs of the Right Shoulder HISTORY: post op, fever COMPARISON: 08/19/2016 preoperative study right shoulder FINDINGS: BONES: Postoperative changes proximal right humerus. No adjacent or suspicious abnormalities. JOINTS: Normal. Glenohumeral and acromioclavicular joints preserved. No osteoarthritis. SOFT TISSUES: Normal. OTHER FINDINGS: None. IMPRESSION: Postoperative findings proximal right humerus, otherwise unremarkable study.
--- NOTE | 2017-02-25 13:32 | RAD ---
PROCEDURE: CHEST RADIOGRAPH, 1 VIEW HISTORY: Fever COMPARISON: 02/03/2017 FINDINGS: LUNGS: Increased markings at the lung bases particularly left lower lobe. This is likely related to poor inspiratory effort, portable technique. PLEURA: No pneumothorax or pleural fluid seen. CARDIOVASCULAR: No radiographic findings to suggest acute or significant cardiovascular disease. OSSEOUS STRUCTURES: No significant abnormalities. VISUALIZED UPPER ABDOMEN: Normal. OTHER FINDINGS: None. IMPRESSION: Probably no active disease. Please see report for details No preliminary report provided by emergency department personnel.
[2017-02-25 13:37] LABS: BASO % 0.5 % (0.0-2.0); EOS # 0.1 K/uL (0.0-0.7); EOS % 1.2 % (0.0-4.0); HEMATOCRIT 44.9 % (35.0-51.0); LYMPH # 1.2 K/uL (1.0-4.3); LYMPH % 12.8 % (20.0-40.0); MEAN CORPUSCULAR HGB CONC 34.5 g/dL (33.0-37.0); MEAN PLATELET VOLUME 7.4 fL (7.2-11.7); MONO % 10.5 % (0.0-10.0); NRBC % 0.1 % (0.0-2.0); RED CELL DISTRIBUTION WIDTH 13.6 % (11.5-14.5); WHITE BLOOD COUNT 9.1 K/uL (4.8-10.8)
[2017-02-25 13:42] LABS: CHLORIDE 97 mmol/L (98-107)
[2017-02-25] MEDS ORDERED: Piperacillin/Tazobact 3.375 gm 100 ML IVPB ONE (13:42)
[2017-02-25] MEDS ORDERED: Vancomycin 1 GM 1 GM/250 ML BAG IVPB ONE (13:42)
[2017-02-25 13:43] LABS: POTASSIUM 3.7 mmol/L (3.6-5.2); SODIUM 140 mmol/L (132-148)
[2017-02-25 13:45] LABS: ALB/GLOB RATIO 1.3 (1.0-2.1); ALKALINE PHOSPHATASE 47 U/L (38-126); AST/SGOT 15 U/L (17-59); BILIRUBIN,TOTAL 0.8 mg/dL (0.2-1.3); BLOOD UREA NITROGEN 13 mg/dL (9-20); CARBON DIOXIDE 30 mmol/L (22-30); GFR AFRICAN-AMERICAN > 60; TOTAL PROTEIN 7.9 g/dL (6.3-8.3)
[2017-02-25 13:46] LABS: ALT/SGPT 35 U/L (21-72); CALCIUM 9.5 mg/dl (8.6-10.4); GLUCOSE,RANDOM 91 mg/dL (75-110)
[2017-02-25 13:57] LABS: RBC URINE 1 /hpf (0-3); URINE BILIRUBIN NEGATIVE (NEGATIVE); URINE BLOOD NEGATIVE (NEGATIVE); URINE COLOR Yellow (YELLOW); URINE GLUCOSE (UA) NORMAL (Normal); URINE KETONE NEGATIVE (NEGATIVE); URINE LEUKOCYTE ESTERASE NEG Leu/uL (Negative); URINE PROTEIN NEGATIVE (NEGATIVE); URINE UROBILINOGEN NORMAL mg/dL (0.2-1.0); WBC URINE 1 /hpf (0-5)
[2017-02-25] MEDS ORDERED: Piperacill/Tazo 3.375gm in Dex 3.375 GM/50 ML BAG IVPB SCH ×2 (15:00→18:00)
[2017-02-25] MEDS: guaiFENesin 600 mg ER Tab PO SCH ×2 (18:00→22:25)
--- NOTE | 2017-02-25 19:16 | CP.PCM.CON ---
History of Present Illness - History of Present Illness History of Present Illness: 51 year old male presents to the ED with complaints of subjective fever, chills , and right shoulder pain. Patient recently had surgery for a right rotator cuff injury on 02/11/[address] Morley and has been taking percocet for pain in the right shoulder. He denies nausea, vomiting, or change in sensation. admitted for pneumonia fever ortho eval pending agree with iv antibiotics await cultures Review of Systems - Constitutional Constitutional: As Per HPI, Chills, Fever, Malaise - EENT Eyes: absent: As Per HPI, Blind Spots, Blurred Vision, Change in Vision, Decreased Night Vision, Diplopia, Discharge, Dry Eye, Exophthalmos, Floaters, Irritation, Itchy Eyes, Loss of Peripheral Vision, Pain, Photophobia, Requires Corrective Lenses, Sees Flashes, Spots in Vision, Tunnel Vision, Other Visual Disturbances, Loss of Vision, Other Ears: absent: As Per HPI, Decreased Hearing, Ear Discharge, Ear Pain, Tinnitus, Abnormal Hearing, Disequilibrium, Dizziness, Other Nose/Mouth/Throat: absent: As Per HPI, Epistaxis, Nasal Congestion, Nasal Discharge, Nasal Obstruction, Nasal Trauma, Nose Pain, Post Nasal Drip, Sinus Pain, Sinus Pressure, Bleeding Gums, Change in Voice, Dental Pain, Dry Mouth, Dysphagia, Halitosis, Hoarsness, Lip Swelling, Mouth Lesions, Mouth Pain, Odynophagia, Sore Throat, Throat Swelling, Tongue Swelling, Facial Pain, Neck Pain, Neck Mass, Other - Cardiovascular Cardiovascular: absent: As Per HPI, Acrocyanosis, Chest Pain, Chest Pain at Rest , Chest Pain with Activity, Claudication, Diaphoresis, Dyspnea, Dyspnea on Exertion, Edema, Irregular Heart Rhythm, Pain Radiating to Arm/Neck/Jaw, Leg Edema, Leg Ulcers, Lightheadedness, Orthopnea, Palpitations, Paroxysmal Nocturnal Dyspnea, Pedal Edema, Radiating Pain, Rapid Heart Rate, Slow Heart Rate, Syncope, Other - Respiratory Respiratory: As Per HPI, Cough - Gastrointestinal Gastrointestinal: absent: As Per HPI, Abdominal Pain, Belching, Bloating, Change in Bowel Habits, Change in Stool Character, Coffee Ground Emesis, Constipation, Cramping, Diarrhea, Dyspepsia, Dysphagia, Early Satiety, Excessive Flatus, Fecal Incontinence, Heartburn, Hematemesis, Hematochezia, Loose Stools, Melena, Nausea, Odynophagia, Temesmus, Vomiting, Other - Genitourinary Genitourinary: absent: As Per HPI, Change in Urinary Stream, Difficulty Urinating, Dysuria, Flank Pain, Hematuria, Pyuria, Nocturia, Urinary Incontinence, Urinary Frequency, Urinary Hesitance, Urinary Urgency, Voiding Freq/Small Amts, Freq UTI, Hx Renal/Bladder Calculi, Hx /Renal Surgery, Bladder Distension, Other - Musculoskeletal Musculoskeletal: As Per HPI - Integumentary Integumentary: As Per HPI. absent: Acne, Alopecia, Bleeding Lesions, Change in Hair, Change in Nails, Change in Pigmentation, Changing Lesions, Dry Skin, Erythema, Furuncle, Hirsutism, Lesions, New Lesions, Non-Healing Lesions, Photosensitivity, Pruritus, Rash, Skin Pain, Skin Ulcer, Sores, Striae, Swelling , Unusual Bruising, Wounds, Jaundice, Other - Neurological Neurological: absent: As Per HPI, Abnormal Gait, Abnormal Hearing, Abnormal Movements, Abnormal Speech, Behavioral Changes, Burning Sensations, Confusion, Convulsions, Disequilibrium, Dizziness, Numbness, Focal Weakness, Frequent Falls , Headaches, Lack of Coordination, Loss of Vision, Memory Loss, Paresthesias, Radicular Pain, Restless Legs, Sensory Deficit, Syncope, Tingling, Tremor, Vertigo, Weakness, Other Visual Disturbances, Other - Psychiatric Psychiatric: absent: As Per HPI, Abnormal Sleep Pattern, Anhedonia, Anxiety, Auditory Hallucinations, Behavioral Changes, Change in Appetite, Change in Libido, Confusion, Depression, Difficulty Concentrating, Hallucinations, Homicidal Ideation, Hopelessness, Irritability, Memory Loss, Mood Swings, Panic Attacks, Paranoia, Suicidal Ideation, Visual Hallucinations, Tactile Hallucinations, Other - Endocrine Endocrine: absent: As Per HPI, Change in Body Appearance, Change in Libido, Cold Intolorance, Deepening of Voice, Excessive Sweating, Fatigue, Flushing, Heat Intolorance, Increase in Ring/Shoe/Hat Size, Palpitations, Polydipsia, Polyphagia, Polyuria, Other - Hematologic/Lymphatic Hematologic: absent: As Per HPI, Easy Bleeding, Easy Bruising, Lymphadenopathy, Other Past Patient History - Past Medical History & Family History Past Medical History?: Yes - Past Social History Smoking Status: Never Smoked - ENDOCRINE/METABOLIC Hx Hypothyroidism: Yes (NO MEDS AT PRESENT DR GARCES [facility]S [place]) - MUSCULOSKELETAL/RHEUMATOLOGICAL Hx Musculoskeletal Disorders: Yes Hx Falls: Yes (slipped on the stairs) Other/Comment: right rotator cuff tear - PSYCHIATRIC Hx Substance Use: No - SURGICAL HISTORY Hx Surgeries: Yes Other/Comment: ROTATOR CUFF REPAIR. - ANESTHESIA Hx Anesthesia: Yes Hx Anesthesia Reactions: No Meds Allergies/Adverse Reactions: Allergies Allergy/AdvReac Type Severity Reaction Status Date / Time No Known Allergies Allergy Verified 02/25/17 12:18 - Medications Medications: Current Medications Acetaminophen (Tylenol 325mg Tab) 650 mg PO Q4 PRN PRN Reason: Fever >100.4 F Albuterol Sulfate (Albuterol 0.083% Inhal Lucero (2.5 Mg/3 Ml) Ud) 2.5 mg INH RQ6 [facility] Guaifenesin (Mucinex La) 600 mg PO BID [facility] Heparin Sodium (Porcine) (Heparin) 5,000 units SC Q8 [facility] Vancomycin HCl 1 gm/ Sodium (Chloride) 250 mls @ 166.6 mls/hr IVPB Q12H [facility] Last Admin: 02/25/17 16:15 Dose: Not Given Piperacillin Sod/Tazobactam Sod (Zosyn 3.375 Gm Iv Premix) 3.375 gm in 50 mls @ 100 mls/hr IVPB Q6H [facility] Oxycodone/Acetaminophen (Percocet 5/325 Mg Tab) 1 tab PO Q4 PRN PRN Reason: Pain, moderate (4-7) Stop: 02/28/17 16:01 Physical Exam - Constitutional Appears: Non-toxic, No Acute Distress, Chronically Ill - Head Exam Head Exam: ATRAUMATIC, NORMAL INSPECTION, NORMOCEPHALIC - Eye Exam Eye Exam: PERRL. absent: Scleral icterus - ENT Exam ENT Exam: Mucous Membranes Dry, Normal External Ear Exam - Neck Exam Neck exam: Negative for: Lymphadenopathy - Respiratory Exam Respiratory Exam: Decreased Breath Sounds, Rhonchi - Cardiovascular Exam Cardiovascular Exam: REGULAR RHYTHM, +S1, +S2 - GI/Abdominal Exam GI & Abdominal Exam: Diminished Bowel Sounds, Soft. absent: Tenderness - Rectal Exam Rectal Exam: Deferred - Exam Exam: NORMAL INSPECTION - Extremities Exam Extremities exam: Positive for: pedal edema, tenderness. Negative for: calf tenderness, pedal pulses present Additional comments: + right shoulder pain tenderness decreased rom - Back Exam Back exam: absent: CVA tenderness (L), CVA tenderness (R) - Neurological Exam Neurological exam: Alert, CN II-XII Intact, Oriented x3, Reflexes Normal - Psychiatric Exam Psychiatric exam: Normal Mood - Skin Skin Exam: Dry Results - Vital Signs Recent Vital Signs: Last Vital Signs Temp 97.8 F 02/25/17 16:25 Pulse 82 02/25/17 16:25 Resp 18 02/25/17 16:25 BP 145/82 02/25/17 16:25 Pulse Ox 97 02/25/17 18:52 - Labs Result Diagrams: 02/25/17 13:32 02/25/17 13:32 Labs: Laboratory Results - last 24 hr 02/25/17 02/25/17 02/25/17 13:32 13:32 13:32 WBC 9.1 D RBC 4.99 Hgb 15.5 Hct 44.9 MCV 90.0 MCH 31.0 MCHC 34.5 RDW 13.6 Plt Count 288 MPV 7.4 Neut % (Auto) 75.0 Lymph % (Auto) 12.8 L [place] % (Auto) 10.5 H Eos % (Auto) 1.2 Baso % (Auto) 0.5 Neut # 6.8 Lymph # 1.2 [place] # 1.0 H Eos # 0.1 Baso # 0.0 Sodium 140 Potassium 3.7 Chloride 97 L Carbon Dioxide 30 Anion Gap 17 BUN 13 Creatinine 0.7 L Est GFR ( Amer) > 60 Est GFR (Non-Af Amer) > 60 Random Glucose 91 Calcium 9.5 Total Bilirubin 0.8 AST 15 L ALT 35 Alkaline Phosphatase 47 Total Protein 7.9 Albumin 4.4 Globulin 3.4 Albumin/Globulin Ratio 1.3 Urine Color Yellow Urine Clarity Clear Urine pH 7.0 Ur Specific [place] 1.013 Urine Protein Negative Urine Glucose (UA) Normal Urine Ketones Negative Urine Blood Negative Urine Nitrate Negative Urine Bilirubin Negative Urine Urobilinogen Normal Ur Leukocyte Esterase Neg Urine WBC (Auto) 1 Urine RBC (Auto) 1 Assessment & Plan (1) Fever Status: Acute (2) Postoperative pneumonia Status: Acute - Assessment and Plan (Free Text) Assessment: cont empiric rx discussed with Dr posey
[2017-02-25] MEDS: Oxycodone/Acetaminophen 5/325 mg Tab PO PRN (20:00)
[2017-02-25] MEDS: Piperacill/Tazo 3.375gm in Dex 3.375 GM/50 ML BAG IVPB SCH (20:03)
[2017-02-25 23:23] VITALS: RESP 20
--- NOTE | 2017-02-25 23:34 | CP.PCM.HP ---
History of Present Illness - History of Present Illness History of Present Illness: 51 year old male presents to the ED with complaints of subjective fever, chills , and right shoulder pain. Patient recently had surgery for a right rotator cuff injury on 02/11/[address] Morley and has been taking percocet for pain in the right shoulder. He denies nausea, vomiting, or change in sensation. admitted for pneumonia fever ortho eval pending agree with iv antibiotics await cultures Past Patient History - Past Medical History & Family History Past Medical History?: Yes - Past Social History Smoking Status: Never Smoked - ENDOCRINE/METABOLIC Hx Hypothyroidism: Yes (NO MEDS AT PRESENT [facility] [place]) - MUSCULOSKELETAL/RHEUMATOLOGICAL Hx Musculoskeletal Disorders: Yes Hx Falls: Yes (slipped on the stairs) Other/Comment: right rotator cuff tear - PSYCHIATRIC Hx Substance Use: No - SURGICAL HISTORY Hx Surgeries: Yes Other/Comment: ROTATOR CUFF REPAIR. - ANESTHESIA Hx Anesthesia: Yes Hx Anesthesia Reactions: No Meds Allergies/Adverse Reactions: Allergies Allergy/AdvReac Type Severity Reaction Status Date / Time No Known Allergies Allergy Verified 02/25/17 12:18 Results - Vital Signs Recent Vital Signs: Last Vital Signs Temp 99 F 02/25/17 23:22 Pulse 96 H 02/25/17 23:22 Resp 20 02/25/17 23:22 BP 123/76 02/25/17 23:22 Pulse Ox 96 02/25/17 23:22 - Labs Result Diagrams: 02/25/17 13:32 02/25/17 13:32 Labs: Laboratory Results - last 24 hr 02/25/17 02/25/17 02/25/17 13:32 13:32 13:32 WBC 9.1 D RBC 4.99 Hgb 15.5 Hct 44.9 MCV 90.0 MCH 31.0 MCHC 34.5 RDW 13.6 Plt Count 288 MPV 7.4 Neut % (Auto) 75.0 Lymph % (Auto) 12.8 L [place] % (Auto) 10.5 H Eos % (Auto) 1.2 Baso % (Auto) 0.5 Neut # 6.8 Lymph # 1.2 [place] # 1.0 H Eos # 0.1 Baso # 0.0 Sodium 140 Potassium 3.7 Chloride 97 L Carbon Dioxide 30 Anion Gap 17 BUN 13 Creatinine 0.7 L Est GFR ( Amer) > 60 Est GFR (Non-Af Amer) > 60 Random Glucose 91 Calcium 9.5 Total Bilirubin 0.8 AST 15 L ALT 35 Alkaline Phosphatase 47 Total Protein 7.9 Albumin 4.4 Globulin 3.4 Albumin/Globulin Ratio 1.3 Urine Color Yellow Urine Clarity Clear Urine pH 7.0 Ur Specific [place] 1.013 Urine Protein Negative Urine Glucose (UA) Normal Urine Ketones Negative Urine Blood Negative Urine Nitrate Negative Urine Bilirubin Negative Urine Urobilinogen Normal Ur Leukocyte Esterase Neg Urine WBC (Auto) 1 Urine RBC (Auto) 1
[2017-02-26] MEDS: Piperacill/Tazo 3.375gm in Dex 3.375 GM/50 ML BAG IVPB SCH ×4 (01:18→19:24)
[2017-02-26] MEDS: Albuterol 0.083% Inhal Sol (2.5 mg/3 mL) UD INH SCH ×4 (02:06→19:55)
[2017-02-26] MEDS: Oxycodone/Acetaminophen 5/325 mg Tab PO PRN ×2 (08:20→16:07)
[2017-02-26] MEDS: guaiFENesin 600 mg ER Tab PO SCH ×2 (09:55→17:33)
[2017-02-27] MEDS: Piperacill/Tazo 3.375gm in Dex 3.375 GM/50 ML BAG IVPB SCH ×4 (01:16→19:04)
[2017-02-27] MEDS: Albuterol 0.083% Inhal Sol (2.5 mg/3 mL) UD INH SCH ×4 (01:57→22:41)
[2017-02-27] MEDS: Oxycodone/Acetaminophen 5/325 mg Tab PO PRN ×3 (07:43→19:05)
[2017-02-27] MEDS: guaiFENesin 600 mg ER Tab PO SCH ×2 (09:50→18:34)
--- NOTE | 2017-02-27 10:27 | CP.PCM.PN ---
Subjective - Date & Time of Evaluation Date of Evaluation: 02/27/17 Time of Evaluation: 10:00 Objective - Vital Signs/Intake and Output Vital Signs (last 24 hours): Temp Pulse Resp BP Pulse Ox 98.5 F 96 H 20 133/92 H 96 02/27/17 08:59 02/27/17 08:59 02/27/17 08:59 02/27/17 08:59 02/27/17 08:59 Intake and Output: 02/27/17 02/27/17 06:59 18:59 Intake Total 950 Balance 950 - Medications Medications: Current Medications Acetaminophen (Tylenol 325mg Tab) 650 mg PO Q4 PRN PRN Reason: Fever >100.4 F Albuterol Sulfate (Albuterol 0.083% Inhal Lucero (2.5 Mg/3 Ml) Ud) 2.5 mg INH RQ6 [facility] Last Admin: 02/27/17 08:02 Dose: 2.5 mg Guaifenesin (Mucinex La) 600 mg PO BID [facility] Last Admin: 02/27/17 09:50 Dose: 600 mg Heparin Sodium (Porcine) (Heparin) 5,000 units SC Q8 [facility] Last Admin: 02/27/17 06:35 Dose: 5,000 units Vancomycin HCl 1 gm/ Sodium (Chloride) 250 mls @ 166.6 mls/hr IVPB Q12H [facility] Last Admin: 02/27/17 05:02 Dose: 166.6 mls/hr Piperacillin Sod/Tazobactam Sod (Zosyn 3.375 Gm Iv Premix) 3.375 gm in 50 mls @ 100 mls/hr IVPB Q6H [facility] Last Admin: 02/27/17 08:26 Dose: 100 mls/hr Oxycodone/Acetaminophen (Percocet 5/325 Mg Tab) 1 tab PO Q4 PRN PRN Reason: Pain, moderate (4-7) Stop: 02/28/17 16:01 Last Admin: 02/27/17 07:43 Dose: 1 tab - Labs Labs: 02/25/17 13:32 02/25/17 13:32 Assessment and Plan (1) Fever Status: Acute (2) Postoperative pneumonia Status: Acute (3) Shoulder arthralgia Status: Acute (4) Shoulder contusion Status: Acute
--- NOTE | 2017-02-27 10:27 | CP.PCM.PN ---
Subjective - Date & Time of Evaluation Date of Evaluation: 02/26/17 Time of Evaluation: 16:05 - Subjective Subjective: Pt seeen & examined,afebrile, on vancomycin and zosyn and waiting for pancultures, right shoulder pain Objective - Vital Signs/Intake and Output Vital Signs (last 24 hours): Temp Pulse Resp BP Pulse Ox 98.5 F 96 H 20 133/92 H 96 02/27/17 08:59 02/27/17 08:59 02/27/17 08:59 02/27/17 08:59 02/27/17 08:59 Intake and Output: 02/27/17 02/27/17 06:59 18:59 Intake Total 950 Balance 950 - Medications Medications: Current Medications Acetaminophen (Tylenol 325mg Tab) 650 mg PO Q4 PRN PRN Reason: Fever >100.4 F Albuterol Sulfate (Albuterol 0.083% Inhal Lucero (2.5 Mg/3 Ml) Ud) 2.5 mg INH RQ6 [facility] Last Admin: 02/27/17 08:02 Dose: 2.5 mg Guaifenesin (Mucinex La) 600 mg PO BID [facility] Last Admin: 02/27/17 09:50 Dose: 600 mg Heparin Sodium (Porcine) (Heparin) 5,000 units SC Q8 [facility] Last Admin: 02/27/17 06:35 Dose: 5,000 units Vancomycin HCl 1 gm/ Sodium (Chloride) 250 mls @ 166.6 mls/hr IVPB Q12H [facility] Last Admin: 02/27/17 05:02 Dose: 166.6 mls/hr Piperacillin Sod/Tazobactam Sod (Zosyn 3.375 Gm Iv Premix) 3.375 gm in 50 mls @ 100 mls/hr IVPB Q6H [facility] Last Admin: 02/27/17 08:26 Dose: 100 mls/hr Oxycodone/Acetaminophen (Percocet 5/325 Mg Tab) 1 tab PO Q4 PRN PRN Reason: Pain, moderate (4-7) Stop: 02/28/17 16:01 Last Admin: 02/27/17 07:43 Dose: 1 tab - Labs Labs: 02/25/17 13:32 02/25/17 13:32 - Constitutional Appears: No Acute Distress - Head Exam Head Exam: ATRAUMATIC, NORMAL INSPECTION, NORMOCEPHALIC - Eye Exam Eye Exam: EOMI, Normal appearance, PERRL Pupil Exam: NORMAL ACCOMODATION, PERRL - Respiratory Exam Respiratory Exam: Decreased Breath Sounds, NORMAL BREATHING PATTERN - Cardiovascular Exam Cardiovascular Exam: REGULAR RHYTHM, +S1, +S2. absent: Murmur - GI/Abdominal Exam GI & Abdominal Exam: Soft, Normal Bowel Sounds. absent: Tenderness - Extremities Exam Extremities Exam: Full ROM, Joint Swelling, Normal Capillary Refill, Normal Inspection, Tenderness Additional comments: right shoulder post op sepsis pain and dec ROM active and passive both - Neurological Exam Neurological Exam: Alert, Awake, CN II-XII Intact, Normal Gait, Oriented x3 Assessment and Plan (1) Fever Status: Acute (2) Postoperative pneumonia Status: Acute (3) Shoulder arthralgia Status: Acute (4) Shoulder contusion Status: Acute
--- NOTE | 2017-02-27 14:48 | CP.PCM.PN ---
Subjective - Date & Time of Evaluation Date of Evaluation: 02/27/17 Time of Evaluation: 10:00 - Subjective Subjective: c/o right shoulder pain alert oriented x rays and cultures reviewed may need arthrocentesis and wash out Objective - Vital Signs/Intake and Output Vital Signs (last 24 hours): Temp Pulse Resp BP Pulse Ox 98.5 F 96 H 20 133/92 H 96 02/27/17 08:59 02/27/17 08:59 02/27/17 08:59 02/27/17 08:59 02/27/17 08:59 Intake and Output: 02/27/17 02/27/17 06:59 18:59 Intake Total 950 Balance 950 - Medications Medications: Current Medications Acetaminophen (Tylenol 325mg Tab) 650 mg PO Q4 PRN PRN Reason: Fever >100.4 F Albuterol Sulfate (Albuterol 0.083% Inhal Lucero (2.5 Mg/3 Ml) Ud) 2.5 mg INH RQ6 [facility] Last Admin: 02/27/17 14:38 Dose: Not Given Guaifenesin (Mucinex La) 600 mg PO BID [facility] Last Admin: 02/27/17 09:50 Dose: 600 mg Heparin Sodium (Porcine) (Heparin) 5,000 units SC Q8 [facility] Last Admin: 02/27/17 14:43 Dose: 5,000 units Vancomycin HCl 1 gm/ Sodium (Chloride) 250 mls @ 166.6 mls/hr IVPB Q12H [facility] Last Admin: 02/27/17 05:02 Dose: 166.6 mls/hr Piperacillin Sod/Tazobactam Sod (Zosyn 3.375 Gm Iv Premix) 3.375 gm in 50 mls @ 100 mls/hr IVPB Q6H [facility] Last Admin: 02/27/17 14:42 Dose: 100 mls/hr Oxycodone/Acetaminophen (Percocet 5/325 Mg Tab) 1 tab PO Q4 PRN PRN Reason: Pain, moderate (4-7) Stop: 02/28/17 16:01 Last Admin: 02/27/17 07:43 Dose: 1 tab - Labs Labs: 02/25/17 13:32 02/25/17 13:32 - Constitutional Appears: Non-toxic, Chronically Ill - Head Exam Head Exam: NORMOCEPHALIC - Eye Exam Eye Exam: PERRL. absent: Scleral icterus - ENT Exam ENT Exam: Mucous Membranes Dry - Neck Exam Neck Exam: absent: Lymphadenopathy - Respiratory Exam Respiratory Exam: Decreased Breath Sounds - Cardiovascular Exam Cardiovascular Exam: REGULAR RHYTHM - GI/Abdominal Exam GI & Abdominal Exam: Distended, Soft - Rectal Exam Rectal Exam: Deferred - Exam Exam: NORMAL INSPECTION - Extremities Exam Extremities Exam: Tenderness. absent: Pedal Edema - Back Exam Back Exam: absent: CVA tenderness (L), CVA tenderness (R) - Neurological Exam Neurological Exam: Alert, Awake, Oriented x3 - Psychiatric Exam Psychiatric exam: Normal Mood - Skin Skin Exam: Dry Assessment and Plan (1) Fever Status: Acute (2) Postoperative pneumonia Status: Acute - Assessment and Plan (Free Text) Plan: cont iv vanco/ zosyn await ortho foillow up
[2017-02-28] MEDS: Piperacill/Tazo 3.375gm in Dex 3.375 GM/50 ML BAG IVPB SCH ×4 (02:00→13:56)
[2017-02-28] MEDS: Albuterol 0.083% Inhal Sol (2.5 mg/3 mL) UD INH SCH ×3 (02:11→14:29)
[2017-02-28] MEDS: Oxycodone/Acetaminophen 5/325 mg Tab PO PRN ×2 (06:13→13:54)
[2017-02-28] MEDS ORDERED: Piperacill/Tazo 3.375gm in Dex 3.375 GM/50 ML BAG IVPB SCH (09:30)
[2017-02-28] MEDS: guaiFENesin 600 mg ER Tab PO SCH (09:35)
--- NOTE | 2017-02-28 11:52 | CP.PCM.PN ---
Subjective - Date & Time of Evaluation Date of Evaluation: 02/28/17 Time of Evaluation: 09:00 - Subjective Subjective: discussed with ortho cultures neg thus far iv rx renewed Objective - Vital Signs/Intake and Output Vital Signs (last 24 hours): Temp Pulse Resp BP Pulse Ox 98.5 F 90 20 132/81 96 02/28/17 00:00 02/28/17 00:00 02/28/17 00:00 02/28/17 00:00 02/28/17 00:00 Intake and Output: 02/28/17 02/28/17 06:59 18:59 Intake Total 650 540 Balance 650 540 - Medications Medications: Current Medications Acetaminophen (Tylenol 325mg Tab) 650 mg PO Q4 PRN PRN Reason: Fever >100.4 F Albuterol Sulfate (Albuterol 0.083% Inhal Lucero (2.5 Mg/3 Ml) Ud) 2.5 mg INH RQ6 [facility] Last Admin: 02/28/17 08:33 Dose: 2.5 mg Guaifenesin (Mucinex La) 600 mg PO BID [facility] Last Admin: 02/28/17 09:35 Dose: 600 mg Heparin Sodium (Porcine) (Heparin) 5,000 units SC Q8 [facility] Last Admin: 02/28/17 06:12 Dose: 5,000 units Vancomycin HCl 1 gm/ Sodium (Chloride) 250 mls @ 166.7 mls/hr IVPB Q8H [facility] Last Admin: 02/28/17 09:31 Dose: 166.7 mls/hr Piperacillin Sod/Tazobactam Sod (Zosyn 3.375 Gm Iv Premix) 3.375 gm in 50 mls @ 100 mls/hr IVPB Q6H [facility] Last Admin: 02/28/17 08:28 Dose: Not Given Oxycodone/Acetaminophen (Percocet 5/325 Mg Tab) 1 tab PO Q4 PRN PRN Reason: Pain, moderate (4-7) Stop: 02/28/17 16:01 Last Admin: 02/28/17 06:13 Dose: 1 tab - Labs Labs: 02/25/17 13:32 02/25/17 13:32 - Constitutional Appears: Non-toxic, Chronically Ill - Head Exam Head Exam: ATRAUMATIC, NORMAL INSPECTION, NORMOCEPHALIC - Eye Exam Eye Exam: PERRL. absent: Scleral icterus - ENT Exam ENT Exam: Mucous Membranes Dry - Neck Exam Neck Exam: absent: Lymphadenopathy - Respiratory Exam Respiratory Exam: Decreased Breath Sounds, Clear to Ausculation Bilateral - Cardiovascular Exam Cardiovascular Exam: REGULAR RHYTHM, +S1, +S2 - GI/Abdominal Exam GI & Abdominal Exam: Distended, Soft. absent: Tenderness - Rectal Exam Rectal Exam: Deferred - Exam Exam: NORMAL INSPECTION Assessment and Plan (1) Fever Status: Acute (2) Postoperative pneumonia Status: Acute - Assessment and Plan (Free Text) Plan: cont iv rx
[2017-02-28 12:33] VITALS: O2SAT 95
--- NOTE | 2017-02-28 17:58 | CP.PCM.PN ---
Subjective - Date & Time of Evaluation Date of Evaluation: 02/28/17 Time of Evaluation: 11:00 - Subjective Subjective: Alert, orientedx3, no sob or chest pains. Right arm on the sling. Objective - Vital Signs/Intake and Output Vital Signs (last 24 hours): Temp Pulse Resp BP Pulse Ox 98 F 95 H 20 128/83 95 02/28/17 10:00 02/28/17 10:00 02/28/17 10:00 02/28/17 10:00 02/28/17 10:00 Intake and Output: 02/28/17 02/28/17 06:59 18:59 Intake Total 650 1470 Balance 650 1470 - Medications Medications: Current Medications Acetaminophen (Tylenol 325mg Tab) 650 mg PO Q4 PRN PRN Reason: Fever >100.4 F Albuterol Sulfate (Albuterol 0.083% Inhal Lucero (2.5 Mg/3 Ml) Ud) 2.5 mg INH RQ6 [facility] Last Admin: 02/28/17 14:29 Dose: Not Given Guaifenesin (Mucinex La) 600 mg PO BID [facility] Last Admin: 02/28/17 09:35 Dose: 600 mg Heparin Sodium (Porcine) (Heparin) 5,000 units SC Q8 [facility] Last Admin: 02/28/17 13:52 Dose: 5,000 units Vancomycin HCl 1 gm/ Sodium (Chloride) 250 mls @ 166.7 mls/hr IVPB Q8H [facility] Last Admin: 02/28/17 16:36 Dose: Not Given Piperacillin Sod/Tazobactam Sod (Zosyn 3.375 Gm Iv Premix) 3.375 gm in 50 mls @ 100 mls/hr IVPB Q6H [facility] Last Admin: 02/28/17 13:56 Dose: 100 mls/hr - Labs Labs: 02/25/17 13:32 02/25/17 13:32 Assessment and Plan - Assessment and Plan (Free Text) Assessment: Patient admitted with severe shoulder pain, seen and examined. Denies acute pain , cough or sob, no acute distress. Cleared by ortho for discharge home. D/W DR Medina, plan to discharge home today. Advised to f/u with PMD in 1 week , also f/u with Ortho as advised.
[2017-02-28 18:48] VITALS: BP 116/77; PULSE 102; TEMP 98.2
--- NOTE | 2017-02-28 22:08 | CP.PCM.DIS ---
Provider - Provider Date of Admission: 02/25/17 14:52 Attending physician: Keovn Medina MD Time Spent in preparation of Discharge (in minutes): 32 Diagnosis - Discharge Diagnosis (1) Fever Status: Acute (2) Postoperative pneumonia Status: Acute (3) Shoulder arthralgia Status: Acute (4) Shoulder contusion Status: Acute Hospital Course - Lab Results Lab Results: Micro Results 02/25/17 13:30 Blood Blood Culture - Preliminary NO GROWTH AFTER 3 DAYS 02/25/17 14:00 Blood Blood Culture - Preliminary NO GROWTH AFTER 3 DAYS Most Recent Lab Values WBC 9.1 K/uL (4.8-10.8) D 02/25/17 13:32 RBC 4.99 Mil/uL (4.40-5.90) 02/25/17 13:32 Hgb 15.5 g/dL (12.0-18.0) 02/25/17 13:32 Hct 44.9 % (35.0-51.0) 02/25/17 13:32 MCV 90.0 fL (80.0-94.0) 02/25/17 13:32 MCH 31.0 pg (27.0-31.0) 02/25/17 13:32 MCHC 34.5 g/dL (33.0-37.0) 02/25/17 13:32 RDW 13.6 % (11.5-14.5) 02/25/17 13:32 Plt Count 288 K/uL (130-400) 02/25/17 13:32 MPV 7.4 fL (7.2-11.7) 02/25/17 13:32 Neut % (Auto) 75.0 % (50.0-75.0) 02/25/17 13:32 Lymph % (Auto) 12.8 % (20.0-40.0) L 02/25/17 13:32 Bonner % (Auto) 10.5 % (0.0-10.0) H 02/25/17 13:32 Eos % (Auto) 1.2 % (0.0-4.0) 02/25/17 13:32 Baso % (Auto) 0.5 % (0.0-2.0) 02/25/17 13:32 Neut # 6.8 K/uL (1.8-7.0) 02/25/17 13:32 Lymph # 1.2 K/uL (1.0-4.3) 02/25/17 13:32 Bonner # 1.0 K/uL (0.0-0.8) H 02/25/17 13:32 Eos # 0.1 K/uL (0.0-0.7) 02/25/17 13:32 Baso # 0.0 K/uL (0.0-0.2) 02/25/17 13:32 Sodium 140 mmol/L (132-148) 02/25/17 13:32 Potassium 3.7 mmol/L (3.6-5.2) 02/25/17 13:32 Chloride 97 mmol/L (98-107) L 02/25/17 13:32 Carbon Dioxide 30 mmol/L (22-30) 02/25/17 13:32 Anion Gap 17 (10-20) 02/25/17 13:32 BUN 13 mg/dL (9-20) 02/25/17 13:32 Creatinine 0.7 MG/DL (0.8-1.5) L 02/25/17 13:32 Est GFR ( Amer) > 60 02/25/17 13:32 Est GFR (Non-Af Amer) > 60 02/25/17 13:32 Random Glucose 91 mg/dL (75-110) 02/25/17 13:32 Calcium 9.5 mg/dl (8.6-10.4) 02/25/17 13:32 Total Bilirubin 0.8 mg/dL (0.2-1.3) 02/25/17 13:32 AST 15 U/L (17-59) L 02/25/17 13:32 ALT 35 U/L (21-72) 02/25/17 13:32 Alkaline Phosphatase 47 U/L (38-126) 02/25/17 13:32 Total Protein 7.9 g/dL (6.3-8.3) 02/25/17 13:32 Albumin 4.4 g/dL (3.5-5.0) 02/25/17 13:32 Globulin 3.4 gm/dL (2.2-3.9) 02/25/17 13:32 Albumin/Globulin Ratio 1.3 (1.0-2.1) 02/25/17 13:32 Urine Color Yellow (YELLOW) 02/25/17 13:32 Urine Clarity Clear (Clear) 02/25/17 13:32 Urine pH 7.0 (5.0-8.0) 02/25/17 13:32 Ur Specific [place] 1.013 (1.003-1.030) 02/25/17 13:32 Urine Protein Negative mg/dL (NEGATIVE) 02/25/17 13:32 Urine Glucose (UA) Normal mg/dL (Normal) 02/25/17 13:32 Urine Ketones Negative mg/dL (NEGATIVE) 02/25/17 13:32 Urine Blood Negative (NEGATIVE) 02/25/17 13:32 Urine Nitrate Negative (NEGATIVE) 02/25/17 13:32 Urine Bilirubin Negative (NEGATIVE) 02/25/17 13:32 Urine Urobilinogen Normal mg/dL (0.2-1.0) 02/25/17 13:32 Ur Leukocyte Esterase Neg Vijay/uL (Negative) 02/25/17 13:32 Urine WBC (Auto) 1 /hpf (0-5) 02/25/17 13:32 Urine RBC (Auto) 1 /hpf (0-3) 02/25/17 13:32 Vancomycin Trough 11.6 ug/mL (5.0-10.0) H 02/28/17 06:24 - Hospital Course Hospital Course: Patient admitted with severe shoulder pain, seen and examined. Denies acute pain , cough or sob, no acute distress. Cleared by ortho for discharge home. plan to discharge home today. Advised to f/u with PMD in 1 week, also f/u with Ortho as advised. Discharge Exam - Head Exam Head Exam: ATRAUMATIC, NORMAL INSPECTION, NORMOCEPHALIC - Eye Exam Eye Exam: Normal appearance - ENT Exam ENT Exam: Mucous Membranes Moist - Respiratory Exam Respiratory Exam: Clear to PA & Lateral - Cardiovascular Exam Cardiovascular Exam: REGULAR RHYTHM, +S1, +S2 - GI/Abdominal Exam GI & Abdominal Exam: Normal Bowel Sounds Discharge Plan - Follow Up Plan Condition: FAIR Disposition: HOME/ ROUTINE Instructions: Pneumonia (DC) Referrals: Kevon Medina MD [Staff Provider] -
== END 2017-02-28 19:29 | disposition home or self-care (01) | DRG 205 ==
LOC: C.ER 12:00 → C.9E 14:52 → C.3T 16:58
PROVIDERS: ADMIT Internal Medicine; ATTEND Internal Medicine
DX: J95.89 Other postprocedural complications and disorders of respiratory system, not elsewhere classified (principal); J18.9 Pneumonia, unspecified organism; E03.9 Hypothyroidism, unspecified; M75.101 Unspecified rotator cuff tear or rupture of right shoulder, not specified as traumatic; Z91.81 History of falling